=== PATIENT | male | born 1960 | race Caucasian/White ===

== ENCOUNTER 2016-05-25 17:00 | Emergency (ER) | payer OTHER ==
[~2016-05-25] VITALS: Ht 177.8 cm; Wt 91.1 kg
[~2016-05-25 17:00] MED LIST: ACET1TAB40 PO; DOCU-144 PO; PRAM28.33 PR; TEMA15CA6 PO
[2016-05-25 17:03] VITALS: Ht 177.8 cm; Wt 91.1 kg
--- NOTE | 2016-05-25 19:25 | EN ---
Date/Time of Note Date/Time of Note DATE: 05/25/16 TIME: 19:24 ER Progress Note 56-year-old male presents here in emergency department for complaint of rash all over the body for the last 2 days. Patient took Benadryl to help with some of the symptoms w/ only mild relief. Patient denies eating something new or different. Patient denies any lip swelling, tongue swelling or stridor. Patient has dementia and is better wheezing. Patient evaluated patient here in the rapid medical examination room, patient was explained that at this time, there is no symptoms of anaphylactic shock, no anaphylactic reaction, no angioedema noted. Patient was told that I can write him prescription medications to help with symptoms. Patient wants medications to be given here in emergency department since his pharmacy is closed today, so I explained to him that we could not give any medication here in rapid medical examination area, patient stated that he wants me to be seen in the emergency department 2 for possible management and oral medications. Patient is stable at this time. Pending evaluation in emergency department 2. EUGENIO STEELE NP May 25, 2016 19:25
[2016-05-25] MEDS ORDERED: predniSONE 20 MG TAB PO ONE (21:00)
[2016-05-25] MEDS ORDERED: DIPHENHYDRAMINE 25 MG CAP PO ONE (21:00)
[2016-05-25] MEDS ORDERED: PRED20TA PO (22:27)
[2016-05-25] MEDS ORDERED: BEN25 PO (22:27)
--- NOTE | 2016-05-25 22:30 | ERD ---
ER Documentation Chief Complaint Date/Time DATE: 05/25/16 TIME: 22:28 Chief Complaint rash since last night HPI This is a 56-year-old male who presents the emergency department today complaining of a diffuse itchy rash that started yesterday. Patient states he took Benadryl that helped for a little while but now the rash has returned. Denies any new medications, chest pain, shortness of breath or difficulty breathing. Denies any fevers or chills. ROS All systems reviewed and are negative except as per history of present illness. Medications Home Meds Active Scripts Prednisone* (Prednisone*) 20 Mg Tab, 40 MG PO DAILY for 4 Days, TAB Prov:MICHAEL RANGEL PA-C 05/25/16 Diphenhydramine Hcl* (Benadryl*) 25 Mg Cap, 25 MG PO Q6, #30 CAP Prov:MICHAEL RANGEL PA-C 05/25/16 Docusate Sodium* (Colace*) 100 Mg Capsule, 100 MG PO BID, #30 Prov:ABHINAV STERN MD 11/24/14 Acetaminophen-Codeine* (Acetaminophen-Cod #3*) 300-30 Mg Tab, 1 TAB PO Q4H Y for PAIN, #10 TAB Prov:ABHINAV STENR MD 11/24/14 Pramoxine Hcl* (Anusol*) 28.3 Gm Oint...g., 1 APPLIC NE TID for RECTAL PAIN for 7 Days, TUB Prov:ABHINAV STERN MD 11/24/14 Reported Medications Temazepam* (Restoril*) 15 Mg Capsule, 15 MG PO HS Y for INSOMNIA, CAP 11/24/14 Allergies Allergies: Coded Allergies: Penicillins (Verified Allergy, Unknown, 11/24/14) PMhx/Soc History of Surgery: Yes (APPENDECTOMY, EXCISION OF MASS NECK) Anesthesia Reaction: No Hx Neurological Disorder: No Hx Respiratory Disorders: No Hx Cardiac Disorders: No Hx Psychiatric Problems: No Hx Miscellaneous Medical Probl: Yes (HIV POSITIVE) Hx Alcohol Use: No Hx Substance Use: No Hx Tobacco Use: No Physical Exam Vitals Vital Signs Date Time Temp Pulse Resp B/P Pulse Ox O2 Delivery O2 Flow Rate FiO2 05/25/16 17:03 97.8 86 18 149/92 99 Physical Exam Const: No acute distress Head: Atraumatic Eyes: Normal Conjunctiva ENT: Normal External Ears, Nose and Mouth. Neck: Full range of motion..~ No meningismus. Resp: Clear to auscultation bilaterally. No absent breath sounds. No wheezing. Cardio: Regular rate and rhythm, no murmurs Abd: Soft, non tender, non distended. Normal bowel sounds Skin: Diffuse macular rash over entire aspect of abdomen and back that appears urticarial in nature Back: No midline or flank tenderness Ext: No cyanosis, or edema Neur: Awake and alert Psych: Normal Mood and Affect Results 24 hrs Current Medications Medications (Trade) Dose Ordered Sig/Vi Route PRN Reason Start Time Stop Time Status Last Admin Dose Admin Prednisone (Prednisone) 60 mg ONCE ONCE PO 05/25/16 21:00 05/25/16 21:01 DC 05/25/16 20:50 Diphenhydramine HCl (Benadryl) 25 mg ONCE ONCE PO 05/25/16 21:00 05/25/16 21:01 DC 05/25/16 20:50 Procedures/MDM This is a 56-year-old male who presents to the emergency department today complaining of a diffuse rash that appears urticarial in nature. Patient is afebrile and otherwise well-appearing. His oxygen saturation is 99%. He is in no acute distress. I will suspicion for angioedema or anaphylaxis. Patient symptoms at this time is consistent with allergic reaction. Low suspicion for meningitis, SJS, cellulitis, deep space infection. Patient was given prednisone and Benadryl here in the emergency department. I will give him a short course for home as well. At this time the patient is stable for discharge and outpatient management. Patient should follow up with their PCP in the next 1-2 days. They may return to the emergency department sooner for any persistent or worsening of symptoms. Patient understood and agreed with the plan. Departure Diagnosis: Primary Impression: Rash and other nonspecific skin eruption Condition: Fair Patient Instructions: Self-Care for Skin Rashes, Allergic Reaction, Other ( General) Referrals: [facility] (PCP) Additional Instructions: Call your primary care doctor TOMORROW for an appointment during the next 1-2 days.See the doctor sooner or return here if your condition worsens before your appointment time. Take Benadryl for itching Take prednisone as prescribed MICHAEL RANGEL PA-C May 25, 2016 22:30
[2016-05-25 22:49] VITALS: PULSE 78; RESP 20; TEMP 98.6
== END 2016-05-25 22:45 | disposition home or self-care (01) ==
LOC: FTE 17:00
DX: R21 Rash and other nonspecific skin eruption (principal)
CPT/HCPCS: J7512; Z7502; Z7610; 99283

== ENCOUNTER 2016-08-06 14:35 | Emergency (ER) | payer OTHER ==
[~2016-08-06] VITALS: Ht 170.2 cm; Wt 95.5 kg
[~2016-08-06 14:35] MED LIST changes: +BEN25 PO; +PRED20TA PO
[2016-08-06 14:51] VITALS: Ht 170.2 cm; Wt 95.5 kg
--- NOTE | 2016-08-06 15:30 | ERD ---
ER Documentation Chief Complaint Date/Time DATE: 08/06/16 TIME: 15:28 Chief Complaint SORETHROAT X4 WKS HPI This pleasant 56-year-old male patient comes in to emergency room with complaints of sore throat, nasal congestion and cough that is worse at night. Patient states that he had flu symptoms 4 weeks ago, headache, body ache, sore throat, chest congestion, and fever. Patient was treated with Tamiflu and ibuprofen, patient reports that his sore throat and nasal congestion has never subsided. Patient is mouth breathing, reports symptoms worse in the morning, dry throat, pain with swallowing. Patient is able to eat and drink but reports pain in doing so. Patient denies any antibiotic use in the last 3 months, is allergic to penicillin, has never taken cephalosporins that he remembers. Is around no sick contacts, denies smoking. ROS All systems reviewed and are negative except as per history of present illness. Medications Home Meds Active Scripts Dextromethorphan Hb-Promethazine Hcl (Promethazine DM Syrup) 473 Ml Syrup, 5 ML PO Q6H Y for COUGH, #4 OZ Prov:BISI,SILVIA 08/06/16 Clarithromycin* (Biaxin*) 500 Mg Tablet, 500 MG PO BID for 10 Days, #20 TAB Prov:BISI,SILVIA 08/06/16 Prednisone* (Prednisone*) 20 Mg Tab, 40 MG PO DAILY for 4 Days, TAB Prov:MICHAEL RANGEL PA-C 05/25/16 Diphenhydramine Hcl* (Benadryl*) 25 Mg Cap, 25 MG PO Q6, #30 CAP Prov:MICHAEL RANGEL PA-C 05/25/16 Docusate Sodium* (Colace*) 100 Mg Capsule, 100 MG PO BID, #30 Prov:ABHINAV STERN MD 11/24/14 Acetaminophen-Codeine* (Acetaminophen-Cod #3*) 300-30 Mg Tab, 1 TAB PO Q4H Y for PAIN, #10 TAB Prov:ABHINAV STERN MD 11/24/14 Pramoxine Hcl* (Anusol*) 28.3 Gm Oint...g., 1 APPLIC [place] TID for RECTAL PAIN for 7 Days, TUB Prov:ABHINAV STERN MD 11/24/14 Reported Medications Temazepam* (Restoril*) 15 Mg Capsule, 15 MG PO HS Y for INSOMNIA, CAP 11/24/14 Allergies Allergies: Coded Allergies: Penicillins (Verified Allergy, Unknown, 11/24/14) PMhx/Soc History of Surgery: Yes (APPENDECTOMY, EXCISION OF MASS NECK) Anesthesia Reaction: No Hx Neurological Disorder: No Hx Respiratory Disorders: No Hx Cardiac Disorders: No Hx Psychiatric Problems: No Hx Miscellaneous Medical Probl: Yes (HIV POSITIVE) Hx Alcohol Use: No Hx Substance Use: No Hx Tobacco Use: No Physical Exam Vitals Vital Signs Date Time Temp Pulse Resp B/P Pulse Ox O2 Delivery O2 Flow Rate FiO2 08/06/16 14:51 98.0 97 20 159/93 98 Vitals stable, triage notes reviewed Physical Exam Const: No acute distress Head: Atraumatic Eyes: Normal Conjunctiva, PERRLA, EOMI ENT: Tympanic membranes translucent, landmarks visualized, positive light reflex, nasal mucosa is edematous, purulent discharge noted posteriorly, septum is midline no bleeding points, pharynx is moist, injected, postnasal drip noted , uvula rises and falls with pronation, tonsils not visualized, tongue is midline Neck: Full range of motion..~ No meningismus. No cervical chain nodes palpable Resp: Chest rises and falls symmetrically ,clear to auscultation bilaterally no rales wheezes or rhonchi auscultated Cardio: Regular rate and rhythm, no murmurs Abd: Soft, non tender, non distended. Normal bowel sounds no hepatosplenomegaly Skin: No petechiae or rashes Back: Ext: Neur: Awake and alert Psych: Normal Mood and Affect Procedures/MDM This 56-year-old male patient presents to emergency department with 4 weeks of a sore throat, cough, nasal congestion symptoms originated with flu symptoms treated with Tamiflu. Patient reports that sore throat and nasal congestion have never fully subsided. Patient reports she is having difficulty breathing through the nose, tasting foods, reports worsen in the morning with dry throat. Patient is mouth breathing. Positive halitosis. Strep throat is unlikely, physical exam findings do not support diagnosis, no exudate, no fevers, no lymphadenopathy. Infectious mononucleosis is considered but not likely. Patient lives with his , is not in crowded dormitories or around young children. Discussed the likelihood of secondary infection after flu symptoms with a sinusitis. Plan to treat with Biaxin and Promethazine DM. I feel the patient is stable for discharge at this time. I have discussed results, examination findings, the treatment plan with the patient and family present prior to discharge. Indications for emergent reevaluation, side effects of medication were also discussed. All questions were answered. Patient verbalizes understanding and agrees with plan of care. Departure Diagnosis: Primary Impression: Sinusitis Sinusitis location: maxillary Chronicity: acute Recurrence: not specified as recurrent Qualified Code: J01.00 - Acute maxillary sinusitis, recurrence not specified Condition: Good Patient Instructions: Acute Sinusitis Referrals: [facility] Additional Instructions: Thank you for for coming to [facility] for your care today. Please ask your nurse or provider if you have questions about your care today and do not leave until all your questions have been answered. Please use any medications given as directed and follow-up with your doctor (or the doctor you were referred to) in the next 2-3 days. If you do not have a primary care doctor you may follow up at the [facility] (listed below). You may also use motrin and tylenol as needed for fever and/or pain unless instructed otherwise by your provider or nurse. Indications for more urgent follow-up have been discussed, but you may return to the Emergency Department at ANY time for any worrisome or worsening symptoms. If you have abdominal pain, please know that no test or exam you received is perfect and you should follow up within 8 hours for continued pain. If you had any imaging studies today, such as an X-Ray or CT Scan, these studies will be reviewed later by a radiologist. You will be called if there are important findings that were not identified today, so make sure the contact information you provided at registration is correct. If you received any narcotic pain control medicine today, such as Vicodin, Morphine or Dilaudid, your coordination and judgment may be affected for a number of hours. Please do not drive or operate heavy machinery, and you may want someone to assist you at home. If you were given a prescription for narcotic medication, be aware that it is very addictive- use sparingly and only if necessary. SILVIA MATHEWS Aug 06, 2016 15:30
[2016-08-06] MEDS ORDERED: CLAR500T39 PO (15:35)
[2016-08-06] MEDS ORDERED: D-ME473S18 PO (15:36)
== END 2016-08-06 15:37 | disposition home or self-care (01) ==
LOC: E/R 14:35
DX: J01.00 Acute maxillary sinusitis, unspecified (principal)
CPT/HCPCS: 99284

== ENCOUNTER 2016-08-26 05:10 | Emergency (ER) | payer OTHER ==
[~2016-08-26] VITALS: Ht 180.3 cm; Wt 96.5 kg
[~2016-08-26 05:10] MED LIST changes: +CLAR500T39 PO; +D-ME473S18 PO; +NO MEDS
[2016-08-26 05:21] VITALS: Ht 180.3 cm; Wt 96.5 kg
--- NOTE | 2016-08-26 07:30 | RADRPT ---
PROCEDURE: US Lower extremity Venous. CLINICAL INDICATION: Right leg pain TECHNIQUE: Multiple sonographic images of the right lower extremity deep venous system was obtaine d utilizing grayscale, color-flow, compressive sonography and doppler imaging with augmentation. Th e images were reviewed on a PACS workstation. COMPARISON: None. FINDINGS: There is normal compressibility and flow within the right common femoral, femoral, posterior tibial, peroneal and popliteal veins. RPTAT: AA IMPRESSION: No sonographic evidence for deep venous thrombosis. .Marty Burton MD, MD Date Time Electronically viewed and signed by .Marty Burton MD, MD on 08/26/2016 07:30 .S/
[2016-08-26] MEDS ORDERED: ACET500C5 PO (08:43)
[2016-08-26] MEDS ORDERED: SODI30SP2 NS (08:43)
[2016-08-26 09:00] VITALS: BP 158/98; PULSE 78; RESP 18
--- NOTE | 2016-08-26 11:01 | ERD ---
ER Documentation Chief Complaint Date/Time DATE: 08/26/16 TIME: 10:57 Chief Complaint right lower calf pain x 3 days radiates to opposite leg HPI 56-year-old male patient with a past medical history of hearing impairment presents to the ED complaining of right calf pain that started 3 days ago. Reports that he has been trying to compensate with his left leg and feels like his left leg as it is achy. Reports mainly his right calf is painful. States that he was trying to walk down the escalator and felt a sharp pain in his calves. Reports that he also had a nosebleed that started yesterday but resolved on its own after applying pressure. Denies any abdominal pain, nausea , vomiting, injuries, trauma, loss of sensation, loss of range of motion, chest pain, shortness of breath. ROS All systems reviewed and are negative except as per history of present illness. Medications Home Meds Active Scripts Sodium Chloride (Saline Nasal [place]) 30 Ml [place], 30 ML NS BID, #1 SPRAY Prov:BRENT KULKARNI PA-C 08/26/16 Acetaminophen* (Tylophen*) 500 Mg Capsule, 1 CAP PO Q6H Y for PAIN AND OR ELEVATED TEMP, #20 CAP Prov:BRENT KULKARNI PA-C 08/26/16 Dextromethorphan Hb-Promethazine Hcl (Promethazine DM Syrup) 473 Ml Syrup, 5 ML PO Q6H Y for COUGH, #4 OZ Prov:BISI,SILVIA 08/06/16 Clarithromycin* (Biaxin*) 500 Mg Tablet, 500 MG PO BID for 10 Days, #20 TAB Prov:BISI,SILVIA 08/06/16 Prednisone* (Prednisone*) 20 Mg Tab, 40 MG PO DAILY for 4 Days, TAB Prov:MICHAEL RANGEL PA-C 05/25/16 Diphenhydramine Hcl* (Benadryl*) 25 Mg Cap, 25 MG PO Q6, #30 CAP Prov:MICHAEL RANGEL PA-C 05/25/16 Docusate Sodium* (Colace*) 100 Mg Capsule, 100 MG PO BID, #30 Prov:ABHINAV STERN MD 11/24/14 Acetaminophen-Codeine* (Acetaminophen-Cod #3*) 300-30 Mg Tab, 1 TAB PO Q4H Y for PAIN, #10 TAB Prov:ABHINAV STERN MD 11/24/14 Pramoxine Hcl* (Anusol*) 28.3 Gm Oint...g., 1 APPLIC [place] TID for RECTAL PAIN for 7 Days, TUB Prov:ABHINAV STERN MD 11/24/14 Reported Medications Temazepam* (Restoril*) 15 Mg Capsule, 15 MG PO HS Y for INSOMNIA, CAP 11/24/14 Allergies Allergies: Coded Allergies: Penicillins (Verified Allergy, Unknown, 11/24/14) PMhx/Soc History of Surgery: Yes (APPENDECTOMY, EXCISION OF MASS NECK) Anesthesia Reaction: No Hx Neurological Disorder: No Hx Respiratory Disorders: No Hx Cardiac Disorders: No Hx Psychiatric Problems: No Hx Miscellaneous Medical Probl: Yes (HIV POSITIVE) Hx Alcohol Use: No Hx Substance Use: No Hx Tobacco Use: No Smoking Status: Never smoker Physical Exam Vitals Vital Signs Date Time Temp Pulse Resp B/P Pulse Ox O2 Delivery O2 Flow Rate FiO2 08/26/16 09:00 78 18 158/98 94 Room Air 08/26/16 05:21 98.4 85 20 163/102 93 Physical Exam Const: [id number], well-nourished. In no acute distress. Head: Atraumatic, normocephalic Eyes: Normal Conjunctiva without injection. No purulent discharge. PERRL. EOMI ENT: Normal external ear. Ear canal without erythema. Tympanic membrane pearly [place] without effusion or bulging. Nasal canal clear with normal turbinates. Moist oropharynx without tonsillar exudates. Non-erythematous pharynx. Uvula midline. No drooling. No trismus. Neck: Full range of motion. No meningismus. No cervical lymphadenopathy. Resp: Clear to auscultation bilaterally. No wheezing, rhonchi, rales, or crackles. No accessory muscle use. No retractions. Cardio: Regular rate and rhythm. No murmurs, rubs or gallops. Abd: Soft, non tender, non distended. Normal bowel sounds. No palpable masses. No rebound tenderness. No guarding. Skin: No petechiae or rashes Back: No midline tenderness. No CVA tenderness. Ext: No cyanosis, or edema. Tenderness to palpation of the right calf. No tenderness palpation of the knee, ankle, foot bilaterally. Full range of motion of the bilateral upper and lower extremities. No warmth to touch, erythema, edema. Neur: Awake and alert. Psych: Normal Mood and Affect Procedures/MDM This is a 56-year-old male patient with no significant past medical history presents to the ED complaining of right calf pain. Patient is afebrile nontoxic appearing. Patient has normal vital signs. A right venous ultrasound was ordered to further evaluate patient. PROCEDURE: US Lower extremity Venous. CLINICAL INDICATION: Right leg pain TECHNIQUE: Multiple sonographic images of the right lower extremity deep venous system was obtained utilizing grayscale, color-flow, compressive sonography and doppler imaging with augmentation. The images were reviewed on a PACS workstation. COMPARISON: None. FINDINGS: There is normal compressibility and flow within the right common femoral, femoral, posterior tibial, peroneal and popliteal veins. RPTAT: AA IMPRESSION: No sonographic evidence for deep venous thrombosis. Patient is neurovascularly intact. Patient's extremity symptoms have stabilized while they have been evaluated in the department and are appropriate for outpatient follow up. No evidence of fractures, dislocations, compartment syndrome, neurologic injury, vascular injury, open joint, open fracture, tendon laceration, septic arthritis, osteomyelitis, DVT, foreign body, or other emergent conditions. Patient likely has an anterior epistaxis. Patient's nosebleed stopped on its own with applied pressure. Low suspicion for posterior epistaxis, acute neurological deficits, intracranial bleed, carotid dissection, aneurysm, subarachnoid hemorrhage, brain aneurysm or other emergent conditions. Discharge medications: Tylenol, Nasal saline spray Follow up with primary care physician in 1-2 days. Instructed patient to return to the ED sooner for any worsening symptoms. Patient's questions were answered. Patient understood and agreed with discharge plan. Patient discharged stable. Departure Diagnosis: Primary Impression: Right calf pain Additional Impression: Epistaxis Condition: Stable Patient Instructions: Possible Causes of Low Back or Leg Pain, Epistaxis (Adult ) Referrals: COMM[facility]ITY CLINICS YOU HAVE RECEIVED A MEDICAL SCREENING EXAM AND THE RESULTS INDICATE THAT YOU DO NOT HAVE A CONDITION THAT REQUIRES URGENT TREATMENT IN THE EMERGENCY DEPARTMENT. FURTHER EVALUATION AND TREATMENT OF YOUR CONDITION CAN WAIT UNTIL YOU ARE SEEN IN YOUR DOCTORS OFFICE WITHIN THE NEXT 1-2 DAYS. IT IS YOUR RESPONSIBILITY TO MAKE AN APPOINTMENT FOR FOLOW-UP CARE. IF YOU HAVE A PRIMARY DOCTOR --you should call your primary doctor and schedule an appointment IF YOU DO NOT HAVE A PRIMARY DOCTOR YOU CAN CALL OUR PHYSICIAN REFERRAL HOTLINE AT IF YOU CAN NOT AFFORD TO SEE A PHYSICIAN YOU CAN CHOSE FROM THE FOLLOWING [facility] [address] [facility] [address] [facility] [address] [facility] [address] [facility] [address] [facility]. [facility] [address] [facility]. [facility] YOU HAVE RECEIVED A MEDICAL SCREENING EXAM AND THE RESULTS INDICATE THAT YOU DO NOT HAVE A CONDITION THAT REQUIRES URGENT TREATMENT IN THE EMERGENCY DEPARTMENT. FURTHER EVALUATION AND TREATMENT OF YOUR CONDITION CAN WAIT UNTIL YOU ARE SEEN IN YOUR DOCTORS OFFICE WITHIN THE NEXT 1-2 DAYS. IT IS YOUR RESPONSIBILITY TO MAKE AN APPOINTMENT FOR FOLOW-UP CARE. IF YOU HAVE A PRIMARY DOCTOR --you should call your primary doctor and schedule and appointment IF YOU DO NOT HAVE A PRIMARY DOCTOR YOU CAN CALL OUR PHYSICIAN REFERRAL HOTLINE AT . IF YOU CAN NOT AFFORD TO SEE A PHYSICIAN YOU CAN CHOSE FROM THE FOLLOWING [facility]: [facility] [address] [place] [address] [facility] [address] [place] [address] [facility] [address] [place] [address] [facility] Additional Instructions: FOLLOW UP WITH YOUR PRIMARY CARE PHYSICIAN in 1-2 days.Return to this facility if you are not improving as expected. BRENT KULKARNI PA-C Aug 26, 2016 11:00
== END 2016-08-26 09:00 | disposition home or self-care (01) ==
LOC: FTE 05:10
DX: M79.661 Pain in right lower leg (principal); R04.0 Epistaxis
CPT/HCPCS: 93971

== ENCOUNTER 2018-07-22 00:17 | Emergency (ER) | payer OTHER ==
[~2018-07-22] VITALS: Wt 91.3 kg
[~2018-07-22 00:17] MED LIST changes: +ACET500C5 PO; -NO MEDS; +SODI30SP2 NS
[2018-07-22] MEDS ORDERED: ONDANSETRON (ODT) 4 MG TAB ODT STA (06:40)
[2018-07-22] MEDS ORDERED: MECLIZINE 12.5 MG TAB PO ONE (07:00)
[2018-07-22] MEDS ORDERED: MECL12.574 PO (08:00)
[2018-07-22] MEDS ORDERED: TEMA15CA6 PO (08:00)
--- NOTE | 2018-07-22 08:03 | ERD ---
ER Documentation Chief Complaint Chief Complaint DIZZINESS, ARVIZU X'S 3 DAYS. HX OF VERTIGO HPI 58-year-old male presents the emergency department complaining of spinning. Patient states he has a history of vertigo, but has not had attack for approximately 10 years. Over the last 3 days, he reports a vertiginous dizziness that is worse when he gets up from lying down and worse when he moves his head to the side. He reports a nonspecific headache with no focal weakness, numbness, difficulty speaking or visual acuity changes. He feels slightly nauseous with the vertigo but has not thrown up. Patient reports no fevers or chills. ROS All systems reviewed and are negative except as per history of present illness. Medications Home Meds Active Scripts Temazepam* (Restoril*) 15 Mg Capsule, 15 MG PO HS PRN for INSOMNIA, #10 CAP Prov:MONIQUE OVIEDO 07/22/18 Meclizine Hcl* (Antivert*) 12.5 Mg Tab, 12.5 MG PO Q6H PRN for DIZZINESS, #20 TAB Prov:MONIQUE OVIEDO 07/22/18 Sodium Chloride (Saline Nasal Calhoun) 30 Ml [place], 30 ML NS BID, #1 SPRAY Prov:BRENT KULKARNI PA-C 08/26/16 Acetaminophen* (Tylophen*) 500 Mg Capsule, 1 CAP PO Q6H PRN for PAIN AND OR ELEVATED TEMP, #20 CAP Prov:BRENT KULKARNI PA-C 08/26/16 Dextromethorphan Hb-Promethazine Hcl (Promethazine DM Syrup) 473 Ml Syrup, 5 ML PO Q6H PRN for COUGH, #4 OZ Prov:BISI,SILVIA 08/06/16 Clarithromycin* (Biaxin*) 500 Mg Tablet, 500 MG PO BID for 10 Days, #20 TAB Prov:BISI,SILVIA 08/06/16 Prednisone* (Prednisone*) 20 Mg Tab, 40 MG PO DAILY for 4 Days, TAB Prov:MICHAEL RANGEL PA-C 05/25/16 Diphenhydramine Hcl* (Benadryl*) 25 Mg Cap, 25 MG PO Q6, #30 CAP Prov:MICHAEL RANGEL PA-C 05/25/16 Docusate Sodium* (Colace*) 100 Mg Capsule, 100 MG PO BID, #30 Prov:ABHINAV STERN MD 11/24/14 Acetaminophen-Codeine* (Acetaminophen-Cod #3*) 300-30 Mg Tab, 1 TAB PO Q4H PRN for PAIN, #10 TAB Prov:ABHINAV STERN MD 11/24/14 Pramoxine Hcl* (Anusol*) 28.3 Gm Oint...g., [address] TID for RECTAL PAIN for 7 Days, TUB Prov:ABHINAV STERN MD 11/24/14 Reported Medications Temazepam* (Restoril*) 15 Mg Capsule, 15 MG PO HS PRN for INSOMNIA, CAP 11/24/14 Allergies Allergies: Coded Allergies: Penicillins (Verified Allergy, Unknown, 11/24/14) PMhx/Soc History of Surgery: Yes (APPENDECTOMY, EXCISION OF MASS NECK) Anesthesia Reaction: No Hx Neurological Disorder: No Hx Respiratory Disorders: No Hx Cardiac Disorders: No Hx Psychiatric Problems: No Hx Miscellaneous Medical Probl: Yes (HIV POSITIVE) Hx Alcohol Use: No Hx Substance Use: No Hx Tobacco Use: No FmHx Supportive family at the bedside. Physical Exam Vitals Vital Signs Date Temp Pulse Resp B/P (MAP) Pulse Ox O2 O2 Flow FiO2 Time Delivery Rate 07/22/18 98.8 86 18 158/105 98 00:22 (122) Physical Exam GENERAL: The patient is well developed and appropriate for usual state of health in no apparent distress HEENT: Pupils equal, round, and reactive to light. EOMI. There is no scleral icterus. NECK: C-spine is soft and supple, there is no meningismus. There is no cervical lymphadenopathy. LUNGS: Clear to auscultation bilaterally. There are no rales, wheezes or rhonchi. HEART: Regular rate and rhythm, no murmurs, clicks, rubs or gallops. ABDOMEN: Soft, non-tender, non-distended. There are bowel sounds in all four quadrants. No rebound or guarding. EXTREMITIES: There is no peripheral cyanosis or edema. No focal swelling or erythema. NEURO: The patient moves all four extremities with 5/5 strength. Cranial nerves II - XII are intact. Extraocular movements are specifically intact with lateral nystagmus but no rotational nystagmus. Normal gait. Alert and oriented. Finger to nose is normal bilaterally. SKIN: There is no apparent rash or petechiae. HEME/LYMPHATIC: There is no evidence of excessive bruising or lymphedema. PSYCHIATRIC: The patient does not appear anxious or depressed. Result Diagram: 07/22/18 0650 07/22/18 0645 Results 24 hrs Laboratory Tests Test 07/22/18 06:45 07/22/18 06:50 Sodium Level 143 mmol/L Potassium Level 3.5 mmol/L Chloride Level 104 mmol/L Carbon Dioxide Level 28 mmol/L Anion Gap 11 Blood Urea Nitrogen 16 mg/dl Creatinine 0.86 mg/dl Est Glomerular Filtrat Rate mL/min > 60 mL/min Glucose Level 99 mg/dl Calcium Level 9.2 mg/dl White Blood Count 2.8 10^3/ul Red Blood Count 5.37 10^6/ul Hemoglobin 15.1 g/dl Hematocrit 44.7 % Mean Corpuscular Volume 83.2 fl Mean Corpuscular Hemoglobin 28.1 pg Mean Corpuscular Hemoglobin Concent 33.8 g/dl Red Cell Distribution Width 13.6 % Platelet Count 97 10^3/UL Mean Platelet Volume 12.4 fl Immature Granulocytes % 0.000 % Neutrophils % 45.4 % Lymphocytes % 37.9 % Monocytes % 10.6 % Eosinophils % 5.7 % Basophils % 0.4 % Nucleated Red Blood Cells % 0.0 /100WBC Immature Granulocytes # 0.000 10^3/ul Neutrophils # 1.3 10^3/ul Lymphocytes # 1.1 10^3/ul Monocytes # 0.3 10^3/ul Eosinophils # 0.2 10^3/ul Basophils # 0.0 10^3/ul Nucleated Red Blood Cells # 0.0 10^3/ul Current Medications Medications Dose Sig/Vi Start Time Status Last (Trade) Ordered Route PRN Stop Time Admin Dose Reason Admin Meclizine 25 mg ONCE ONCE 07/22/18 DC 07/22/18 HCl PO 07:00 06:44 (Antivert) 07/22/18 07:01 Ondansetron 4 mg ONCE STAT 07/22/18 DC 07/22/18 HCl (Zofran ODT 06:40 06:44 Odt) 07/22/18 06:41 Procedures/MDM Patient was taken to a room, seen and evaluated. Comfort measures were initiated. Diagnostic tests were ordered and reviewed. RADIOLOGY: Reviewed with the radiologist REEVALUATION: 0800: Diagnostic tests were appreciated. Patient was reevaluated and remained neurologically normal. He was ambulatory without difficulty without stroke symptoms. MEDICAL DECISION MAKIN-year-old male presents with dizziness of uncertain etiology in the setting of a previous history of vertigo. Diagnostic workup including physical examination as well as imaging demonstrates no signs of central concerns. I suspect that some of his dizziness may be related to his underlying medication including the Restoril which she seems to be taking on and off. At this time, he shows no other evidence of infection, neurologic concerns or other high-risk issues and seems to be appropriate for outpatient supportive care. Departure Diagnosis: Primary Impression: Vertigo Condition: Stable Patient Instructions: Vertigo, Unspecified Additional Instructions: See your doctor for follow-up as discussed. Take a copy of your test results, if appropriate, to this follow-up visit. See your doctor or return here if your symptoms do not improve as expected. At any time, please return to the emergency department for any change or worsening in her symptoms. MONIQUE OVIEDO Jul 22, 2018 08:03
[2018-07-22 08:35] VITALS: BP 128/66; PULSE 76; RESP 19
== END 2018-07-22 08:36 | disposition home or self-care (01) ==
LOC: FTE 00:17
DX: R42 Dizziness and giddiness (principal); R11.0 Nausea; Z21 Asymptomatic human immunodeficiency virus [HIV] infection status
CPT/HCPCS: 36415; 70450; 80048; 85025; Z7502; Z7610